=== PATIENT | female | born 1990 | race Caucasian/White ===

== ENCOUNTER 2018-04-13 09:38 | Outpatient (CLI) | payer OTHER ==
--- NOTE | 2018-04-13 11:43 | ULT ---
LEFT BREAST ULTRASOUND: History: 28-year-old female with bilateral milky nipple discharge. Patient had a baseline diagnostic mammogram showing a focal asymmetry in the upper outer aspect of the left breast. Technique: Multiplanar grayscale and color doppler images were obtained in a targeted ultrasound of the upper ou ter aspect of the left breast. FINDINGS: A normal appearing lymph node is seen in the left axilla. No cyst is seen in the upper outer aspect o f the left breast. No suspicious mass or shadowing is seen in the upper outer aspect of the left tao st. IMPRESSION: BIRADS category 2 - benign findings. Annual screening mammography is recommended at the age of 40. Th e milky nipple discharged was discussed with the patient and she has been told that this is benign an d non-concerning. The patient was told to begin to perform self-breast exams and to return before the age of 38 should she feel an abnormality in her breasts. POS: NICKY
== END 2018-04-13 09:39 | disposition home or self-care (01) ==
LOC: BICMAMMO 09:38
PROVIDERS: ATTEND Family Medicine
DX: N64.3 Galactorrhea not associated with childbirth (principal); N64.89 Other specified disorders of breast
CPT/HCPCS: 77066; G0279